=== PATIENT | female | born 1950 | race Caucasian/White ===

== ENCOUNTER → 2017-03-24 | Outpatient (CLI) | payer OTHER | LOC: EMI 14:00 | DX: R42 Dizziness and giddiness (principal); I67.82 Cerebral ischemia | CPT/HCPCS: 70553; A9577; J7050 ==

== ENCOUNTER → 2020-11-06 | Outpatient (CLI) | payer MEDICARE, OTHER ==
[~2020-11-06] MED LIST: BENTYL 20MG TAB20 MG PO; CALCIUM500 MG PO; DAILY MULTIPLE1 EAC1 PO; MECLIZINE HCL25 MG PO; MELATONIN1 MG PO; PROTONIX 40 MG40 M1 PO; XANAX0.5 MG PO; ZOCOR 40 MG TAB40 MG PO; ZOFRAN4 MG PO; ZYRTEC10 M3 PO
== END ==
LOC: US 09:30
DX: R10.84 Generalized abdominal pain (principal); K38.8 Other specified diseases of appendix; K44.9 Diaphragmatic hernia without obstruction or gangrene
CPT/HCPCS: 36415; 76705; 82565; 84520; Q9967

== ENCOUNTER 2020-11-07 08:59 | Emergency (ER) | payer MEDICARE, OTHER ==
[~2020-11-07 08:59] MED LIST changes: -ZOFRAN4 MG PO
[2020-11-07 10:28] LABS: HEMOGLOBIN 13.5 gm/dl (12.3-15.3); RED BLOOD COUNT 4.37 M/UL (4.00-5.10)
[2020-11-07 11:15] LABS: BUN/CREATININE RATIO 13 (0-10)
[2020-11-07] MEDS ORDERED: ZOFRAN4 MG PO (14:01)
== END 2020-11-07 14:13 | disposition home or self-care (01) ==
LOC: ER1 08:59
PROVIDERS: Physician Assistant
DX: R10.11 Right upper quadrant pain (principal); R10.30 Lower abdominal pain, unspecified; R11.0 Nausea; Z87.19 Personal history of other diseases of the digestive system; Z98.890 Other specified postprocedural states; Z88.2 Allergy status to sulfonamides; Z88.5 Allergy status to narcotic agent
CPT/HCPCS: 71045; 80053; 81001; 82150; 82550; 82553; 83690; 83874; 84484; 85025; 93005; 96374; 96375; 96376; 99284; J2270; J2405; J7030; Q9967

== ENCOUNTER → 2020-11-27 | Outpatient (CLI) | payer MEDICARE, OTHER ==
[~2020-11-27] MED LIST changes: +ZOFRAN4 MG PO
== END ==
LOC: NM 13:13
DX: R10.84 Generalized abdominal pain (principal)
CPT/HCPCS: 78226; A9537

== ENCOUNTER 2021-01-12 09:30 | Emergency (ER) | payer MEDICARE, OTHER ==
[2021-01-12 10:18] LABS: HEMOGLOBIN 12.8 gm/dl (12.3-15.3); RED BLOOD COUNT 4.13 M/UL (4.00-5.10); WHITE BLOOD COUNT 2.5 K/UL (4.5-11.0)
[2021-01-12 11:05] LABS: BUN/CREATININE RATIO 14 (0-10)
== END 2021-01-12 12:16 | disposition home or self-care (01) ==
LOC: ER1 09:30
PROVIDERS: Physician Assistant
DX: U07.1 COVID-19 (principal); Z88.2 Allergy status to sulfonamides; Z88.5 Allergy status to narcotic agent
CPT/HCPCS: 36415; 71045; 80053; 85025; 99283; M0239